=== PATIENT | male | born 1965 | race Two or more races ===

== ENCOUNTER 2025-09-16 10:27 | Inpatient (IN) | payer MEDICAID, SELFPAY ==
[2025-09-16] VITALS (7 sets, daily range): BP systolic 125–146; BP diastolic 70–94; PULSE 86–121; RESP 15–96; TEMP 36.6–37.2; O2SAT 96–98; BMI 25.7; BMI 26.8
--- NOTE | 2025-09-16 10:51 | XR_ITS ---
Examination: Duplex scan of the lower extremity, unilateral right Date and time of exam: September 16, 2025, 1248 hours INDICATIONS: Nonhealing wound right leg with edema noticed beginning 2 weeks ago Technique: Duplex scan of the extremity veins using B-mode/grayscale imaging and Doppler spectral analysis and color flow Attention is directed to internal echogenicity, compression and augmentation involving these veins, color flow assessment, spectral analysis Findings: Major deep venous structures in the extremity demonstrate normal course and caliber. There is no evidence of deep vein thrombosis. Normal color flow and spectral analysis Impression: Negative for DVT..
--- NOTE | 2025-09-16 10:56 | EKG_ITS ---
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
--- NOTE | 2025-09-16 10:56 | XR_ITS ---
EXAMINATION: AP chest single view TECHNIQUE: AP portable semiupright chest single view Date and time: August 16, 2025, 12:15 p.m. INDICATION: Chest pain today. FINDINGS: Normal heart size Ectatic thoracic aorta. No pneumonia or pulmonary edema IMPRESSION: No active disease
--- NOTE | 2025-09-16 10:57 | EDNOTE_ITS ---
ED Wound/Laceration-RME/HPI General Chief Complaint: Extremity Injury, Lower Stated Complaint: INFECTION TO RIGHT LOWER LEG Time Seen by Provider: 09/16/25 10:51 Arrival date/time: 09/16/25 10:27 RME / HPI RME / HPI narrative: DR. ALLAN MAIN ED EVALUATION: 60-year-old male presents to the Emergency Department accompanied by his daughter for evaluation of a right leg wound that has been present for approximately 2 weeks. The patient reports that he was initially seen at [facility], where he was given a shot and prescribed oral antibiotics, which initially improved the swelling. However, the wound later began blistering and oozing. He was subsequently switched the antibiotics and also received injections on Wednesday, , and Wednesday of last week at the clinic. Despite these treatments, he notes no significant improvement and reports intermittent fevers and chills. The antibiotics that were tried were Doxycycline and Bactrim. No history of diabetes reported. Related Data Previous Rx's ?Medication ?Instructions ?Recorded ibuprofen 800 mg tablet 800 mg PO TID PRN pain #30 t abs 08/16/22 Allergies Allergy/AdvReac Type Severity Reaction Status Date / Time No Known Allergies Allergy Verified 09/16/25 10:31 Review of Systems Review of Systems Systems Reviewed: All systems reviewed, normal except as documented Past Medical History Past Medical History CARDIAC: Positive Hypertension Social History SMOKING STATUS: Never smoker SUBSTANCE USE: does not use ALCOHOL: Never ED Exam Narrative Physical exam: GENERAL APPEARANCE: alert and oriented x 4, well-developed, well-nourished, no acute distress VITALS: All vitals were reviewed and the pulse ox is 98% on room air, which is normal according to my interpretation. HEENT: Normocephalic, atraumatic; pupils equal, round, reactive to light; EOMI; mucous membranes pink, moist; oropharynx clear NECK: Supple LUNGS: CTABL; no wheezes, no rales, no rhonchi HEART: Regular rate, regular rhythm; normal S1, S2; no murmurs ABDOMEN: non distended; normal BS; soft, no tenderness, no guarding, no rebound; no masses, no organomegaly, no hernia BACK: no CVA tenderness EXTREMITIES: Right lower leg: multiple areas of denuded skin secondary to deroofed blisters, with surrounding erythema and mild edema. Good pedal pulses bilaterally. 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 09/16/25 10:56 Active EKG (ED ONLY) *Do not use* NOW Care 09/16/25 10:[address] LE RT w con Stat Exams 09/16/25 11:00 Taken EKG (ED Only) Stat Exams 09/16/25 10:56 Draft US venous doppler LE RT Stat Exams 09/16/25 10:51 Taken XR chest 1V portable Stat Exams 09/16/25 10:56 Completed B-Type Natriuretic Peptide Stat Lab 09/16/25 10:55 Completed Blood Culture (Lab) Stat Lab 09/16/25 11:00 Received CBC Stat Lab 09/16/25 10:55 Completed Comprehensive Metabolic Panel Stat Lab 09/16/25 10:55 Completed Lactate (Lactic Acid) Stat Lab 09/16/25 10:55 Completed Lipase Stat Lab 09/16/25 10:55 Completed Magnesium Stat Lab 09/16/25 10:55 Completed Partial Thromboplastin Time Stat Lab 09/16/25 10:55 Completed Procalcitonin Stat Lab 09/16/25 10:55 Completed Prothrombin Time with INR Stat Lab 09/16/25 10:55 Completed Troponin I Stat Lab 09/16/25 10:55 Completed Urinalysis Stat Lab 09/16/25 13:49 Completed Urine Culture Stat Lab 09/16/25 13:50 Received Magnesium Sulfate 2 GM Ivpb [Magnesium Sulfate Ivpb] Med 09/16/25 13:36 Discontinued 2 gm in 50 ml IV X1 Piper/Tazo 3.375 gm Premix [Zosyn] Med 09/16/25 16:16 Discontinued 3.375 gm in 50 ml IV X1 Sodium Chloride 0.9% 1000 ml [Ns] 1,000 ml Med 09/16/25 12:10 Discontinued IV 999 mls/hr Vancomycin/Ns 1 gm Ivpb 200 ml Med 09/16/25 16:16 Active IV X1 Vital Signs Vital signs: Vital Signs Temperature 97.9 F 09/16/25 10:43 Pulse Rate 121 H 09/16/25 10:43 Respiratory Rate 20 09/16/25 10:43 Blood Pressure 146/94 H 09/16/25 10:43 Pulse Oximetry (%) 98 09/16/25 10:43 Oxygen Delivery Method Room Air 09/16/25 10:43 Wound / Laceration MDM Narrative MDM Narrative:: I, Arabella Leon, am scribing for and in the presence of Dr. Allan. Patient data External records reviewed:: [facility] previous records Clinical information provided by:: patient and family (daughter) Social determinants that could affect healthcare access:: none Patient has the following chronic illnesses:: No known PMHx, surgeries, daily medications, or known allergies. How is presenting disease/condition affected by chronic disease/condition?: no chronic disease Evaluation data The following diagnostics were reviewed and interpreted by me:: lab results, radiology exam(s) and EKG tracing(s) (My interpretation: EKG performed at 1104 hours, sinus tachycardia, rate 101, mild artifact, Q wave in leads 2, 3, and AVF, poor R wave progression, no acute ischemic changes) Lab and/or radiology exams considered but not ordered:: none Interpretation Summary: My interpretation: EKG performed at 1104 hours, sinus tachycardia, rate 101, no acute ischemic changes Medications / Prescriptions Medications or Prescriptions considered but not ordered:: none Medication administrations:: Medication Administration History Acetaminophen (Acetaminophen 325 Mg Tablet) 650 mg PO Q6H PRN PRN Reason: Fever >100.3, Pain (1-3) Stop: 10/16/25 16:59 Hydrocodone Bitart/Acetaminophen (Hydrocodone/Apap 5/325 Tablet) 1 tab PO Q6HR PRN PRN Reason: PAIN SCALE 4-10(Mod-Sev Stop: 09/21/25 16:59 Heparin Sodium (Porcine) (Heparin Sod Inj 5000 Unit/Ml Vial) 5,000 unit SC Q12HR MADONNA Stop: 09/30/25 16:59 Vancomycin/Sodium Chloride (Vancomycin/Ns 1 Gm Ivpb) 200 mls @ 120 mls/hr IV X1 ONE Stop: 09/16/25 17:55 Lactated Ringer's (Lactated Ringers) 1,000 mls @ 75 mls/hr IV .[id number] MADONNA Stop: 09/17/25 06:19 Piperacillin Sod/Tazobactam (Sod 4.5 gm/ Sodium Chloride) 100 mls @ 25 mls/hr IV Q8HR MADONNA; Protocol Stop: 09/23/25 21:59 Ondansetron HCl (Ondansetron Inj 2 Mg/Ml Inj 2 Ml) 4 mg IVP Q6H PRN; Protocol PRN Reason: NAUSEA OR VOMITING Stop: 10/16/25 16:59 Pharmacy Consult (Vancomycin Pharmacy To Dose 1 Each Each) 1 each IV QDAY PRN PRN Reason: PROTOCOL Stop: 10/16/25 17:14 Sennosides (Senna Tablet) 1 tab PO QDAY PRN; Protocol PRN Reason: constipation Stop: 10/16/25 16:59 Discontinued Medications Sodium Chloride (Ns) 1,000 mls @ 999 mls/hr IV .Q1H1M ONE Stop: 09/16/25 13:10 Last Infusion: 09/16/25 13:45 Dose: Infused Documented By: Admin: 09/16/25 12:52 Dose: 999 mls/hr Documented By: GM Magnesium Sulfate (Magnesium Sulfate Ivpb) 2 gm in 50 mls @ 25 mls/hr IV X1 ONE Stop: 09/16/25 15:35 Last Infusion: 09/16/25 16:26 Dose: Infused Documented By: Admin: 09/16/25 13:45 Dose: 25 mls/hr Documented By: BD Piperacillin/Tazobactam/Dextrose (Zosyn) 3.375 gm in 50 mls @ 100 mls/hr IV X1 ONE; Protocol Stop: 09/16/25 16:45 Last Admin: 09/16/25 17:08 Dose: 100 mls/hr Documented By: GM see above if any Consultations Consultation(s) initiated? (list below): Yes Consultation #1 (Physician, Specialty, Details): Discussed test HPI, PMHx, lab, radiology results and/or management with resident working with the hospitalist. Will admit for further evaluation and management. Accepts patient for admission. Time: 16:51 Diagnosis Wound Differential Diagnosis: other (Cellulitis with possible abscess formation, bullous impetigo, and venous stasis dermatitis with secondary infection.) Most likely diagnosis given after review of the tests above:: Cellulitis Admission Indicated Admission indicated?: indicated Admission Request Was there a request for admission?: Yes Admission Attestation Admission request attestation: Discussed case with [] from Hospitalist service regarding admission. Discussed patients ED course, exam findings, labs, and radiology results. The Hospitalist [agrees,declines] to accept the patient for admission. Disposition Plan Disposition Plan: Admit Discharge Plan Plan Patient Disposition: Admit Acute Care w/in Hospital Problem List Clinical Impression: Cellulitis
--- NOTE | 2025-09-16 11:00 | XR_ITS ---
Examination examination: CT right lower extremity with intravenous contrast, contrast. 2-D sagittal reconstructions. 2-D coronal reconstructions. 3-D reconstructions. Date and time of exam: September 16, 2025, 1233 hours INDICATIONS: Onset right lower leg redness swelling and pain beginning 2 weeks ago CTDI: vol (mGy): 7.82 DLP: (mGycm): 325 Technique: Multiple 1.25 mm axial sections of the right lower extremity post intravenous administration 60 cc Isovue-370 have been obtained. 2-D sagittal and coronal reconstructions have been obtained. 3-D reconstructions have been obtained. Low dose protocols were performed. One or more of the following dose reduction techniques were used; automated exposure control, adjustment of the mA and/or KV according to patient size, use of iterative reconstruction technique. Findings: Diffuse edema surrounding the medial anterior thigh, more severe edema surrounding the tibia and fibula with skin thickening Negative for osteomyelitis Heavy soft tissue vascular calcification No cortical bone destruction No endosteal scalloping No soft tissue mass in the muscle IMPRESSION: Diffuse edema involving the lower extremity especially the lower leg
[2025-09-16 11:12] LABS: Lactate (Lactic Acid) 2.0 mMol/L (0.4-2.0)
[2025-09-16 11:19] LABS: Basophils # (Auto) 0.1 Thou/mm3 (0.0-0.2); Basophils % (Auto) 1 % (0-2.5); Eosinophils # (Auto) 0.0 Thou/mm3 (0.0-0.5); Eosinophils % (Auto) 0 % (0-10); Hematocrit 40.4 % (41.0-53.0); Hemoglobin 13.1 g/dL (13.5-16.0); Immature Granulocytes Auto 0.59 Thou/mm3 (0.00-0.00); Lymphocytes # (Auto) 1.7 Thou/mm3 (1.0-4.8); Lymphocytes % (Auto) 19 % (10-50); Mean Corpuscular HGB Conc 32.4 g/dl (31.0-37.0); Mean Corpuscular Hemoglobin 30.8 pg (25.0-35.0); Mean Corpuscular Volume 95 fL (80-100); Monocytes # (Auto) 0.4 Thou/mm3 (0.0-0.8); Monocytes % (Auto) 5 % (0-12); Neutrophils # (Auto) 6.3 Thou/mm3 (1.8-7.7); Neutrophils % (Auto) 69 % (37-80); Nucleated Red Blood Cell # 0.00 Thou/mm3 (0.00-0.00); Nucleated Red Blood Cell % 0 /100 WBC (0); Platelet Count 451 Thou/mm3 (140-440); RDW Standard Deviation 50.1 fL (35.1-43.9); Red Blood Count 4.25 Miln/mm3 (4.50-5.90); White Blood Count 9.2 Thou/mm3 (3.8-10.6)
[2025-09-16 11:29] LABS: INR 1.1 (0.9-1.3); Partial Thromboplastin Time 27.8 Seconds (22.0-36.0); Prothrombin Time 11.9 Seconds (9.0-12.2)
[2025-09-16 11:35] LABS: Alanine Aminotransferase 29 U/L (10-49); Albumin, Serum 3.4 gm/dL (3.4-4.8); Albumin/Globulin Ratio 0.7 (1.2-2.2); Alkaline Phosphatase 120 U/L (46-116); Anion Gap 10 (7-16); Aspartate Amino Transferase 31 U/L (0-34); BUN/Creatinine Ratio 22 Ratio (12-20); Bilirubin,Total 0.6 mg/dL (0.3-1.2); Blood Urea Nitrogen 29 mg/dL (9-23); Calcium 8.8 mg/dL (8.3-10.6); Calcium (Corrected) 9.3 mg/dL (8.5-10.1); Carbon Dioxide 20.7 mMol/L (20.0-31.0); Chloride 105 mMol/L (98-107); Creatinine (Component) 1.3 mg/dL (0.6-1.3); Estimated Creatinine Clearance 47.4 mL/min (>60); Globulin 5.0 gm/dL (2.3-3.5); Glucose 138 mg/dL (74-106); Lipase 51 U/L (12-53); Magnesium 1.4 mg/dL (1.6-2.6); Osmolality,Calculated 279 (275-295); Potassium 4.2 mMol/L (3.4-5.1); Sodium 136 mMol/L (136-145); Total Protein 8.4 gm/dL (5.7-8.2); Troponin I < 0.002 ng/mL (0.0-0.045); eGFR > 60 See Note
[2025-09-16 11:41] LABS: Procalcitonin 0.16 ng/ml (0.0-0.49)
[2025-09-16 12:01] LABS: B-Type Natriuretic Peptide < 20 pg/mL (0-100)
[2025-09-16] MEDS: SODIUM CHLORIDE 0.9% 1000 ML 1,000 ML 999 ML IV (12:52)
[2025-09-16] MEDS: Magnesium Sulfate 2 GM Ivpb 2 GM/50 ML BAG IV (13:45)
[2025-09-16 13:58] LABS: Collection Type, Urine Clean Catch
--- NOTE | 2025-09-16 14:07 | PRELIM_ITS ---
CT scan of the right lower extremity with intravenous contrast (axial sections with sagittal and coronal reformats) September 16, 2025 at 1233 hours Clinical History: Right leg edema Comparison: No prior study is available for comparison. Findings: The visualized bones show mild osteopenia and early degenerative changes. No fracture or dislocation is noted. No joint effusion is noted. The visualized muscles are unremarkable with maintained intermuscular fat planes. The entire lower limb vessels show extensive atheromatous calcifications causing mild to moderate luminal compromise. Diffuse subcutaneous edema is present in the right mid, lower thigh and leg region. Impression: 1. Mild osteopenia with early degenerative changes. 2. No evidence of fracture, dislocation, or joint effusion. 3. Extensive atheromatous vascular calcifications with mild to moderate luminal narrowing. 4. Diffuse subcutaneous edema involving the right mid and lower thigh and leg. Report Electronically Signed By: Jose Hoff 09/16/2025 2:06:24 PM [EST]
[2025-09-16 14:17] LABS: Bilirubin,Urine Negative (Negative); Blood,Urine Negative (Negative); Clarity,Urine Clear (Clear/Hazy); Color,Urine Lt-Yellow (Lt Yel-Yel); Glucose, Urine Negative (Negative); Hyaline Casts,Urine < 1 /hpf (0-1); Ketones,Urine Negative (Negative); Leukocyte Esterase,Urine Negative (Negative); Nitrite,Urine Negative (Negative); PH,Urine 6.0 (5.0-7.0); Protein,Urine Negative (Neg - Trace); RBC,Urine 3 /hpf (0-3); Specific Gravity,Urine 1.041 (1.001-1.035); Squamous Epithelial Cell,Urine 1 /hpf (0-5); Urobilinogen,Urine Negative mg/dL (0.0-1.0); WBC,Urine 8 /hpf (0-5)
--- NOTE | 2025-09-16 14:44 | PRELIM_ITS ---
Radiograph of the chest (single view). September 16, 2025 1215 hours Clinical history: chest pain No prior study is available for comparison. Findings: The heart, mediastinum and pulmonary ana are unremarkable. The lungs are clear. There is no pleural effusion. The bony thorax is unremarkable. Impression: No acute cardiopulmonary process. Report Electronically Signed By: Jose Hoff 09/16/2025 2:44:13 PM [EST]
[2025-09-16] MEDS: PIPER/TAZO 3.375 GM PREMIX 3.375 GM/50 ML BAG IV (17:08)
--- NOTE | 2025-09-16 17:12 | PD.RESHP ---
Documentation for date of: 09/16/25 HPI History of Present Illness Chief complaint: Right lower extremity skin peeling wound and swelling History of present illness: Mr. Damian is a 60-year-old male with past medical history of hypertension who presented to [facility] emergency department with a chief complaint of right lower extremity skin peeling wound and swelling. Patient reported that his symptoms started about a week ago when he had a lesion on his right leg for which he saw his primary care physician received 3 doses of IV medication and was prescribed oral antibiotics, reported that since receiving medication the extremity swelling has worsened, reports peeling of skin at multiple sites throughout the leg, redness tenderness and difficulty mobilizing as well. Patient currently denies any pain in the extremity, trauma to the extremity, does report that earlier had significant pain, denies any pain currently. He denies any new medications other than the antibiotics which per chart review are doxycycline and Bactrim. Denies any new dietary supplements, similar lesions in the past, any lesions or similar findings anywhere else. ED Course: ED Vitals: On presentation in ER blood pressure 146/94, heart rate 121, respiratory rate 20, temp 97.9, O2 sat 98 on room air ED Labs: ER labs significant for WBC 9.2, RBC 4.25, hemoglobin 13.1, hematocrit 40.4 MCV MCH MCHC within normal limits, platelet count 451, no left shift noted. Coagulation panel within normal limits, CMP shows elevated BUN 29, creatinine 1.3, GFR greater than 60, glucose 138, corrected calcium normal, magnesium 1.4, AST ALT within normal limits alk phos 120, troponin BNP Pro-Orbin and lipase within normal limits. Elevated total protein 8.4 with globulin 5.0 noted. Urinalysis shows specific gravity 1.041, WBC 8, no bacteria noted. ED Imaging: Venous Doppler study in the emergency department shows no DVT chest x-ray shows no active disease CT lower extremity shows diffuse edema involving lower extremity especially lower leg. No evidence of osteomyelitis. ED Treatment:Patient was given 1 L NS bolus, 2 g of mag and IV Zosyn and vancomycin in the emergency department. Review of Systems Review of Systems Narrative Review of Systems: ROS: -CONSTITUTIONAL: Denies weight loss, fever and chills. -HEENT: Denies changes in vision and hearing. -RESPIRATORY: Denies SOB and cough. -CV: Denies palpitations and Chest Pain. -GI: Denies abdominal pain, nausea, vomiting,constipation and diarrhea. -: Denies dysuria and urinary frequency. -MSK: Denies myalgia and joint pain. Positive for skin peeling swelling right lower extremity. -SKIN: Denies rash and pruritus. -NEUROLOGICAL: Denies headache and syncope. -PSYCHIATRIC: Denies recent changes in mood. Denies anxiety and depression. 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 Conversational and non-toxic appearing. HEENT: Normocephalic, atraumatic, mucous membranes moist. Heart: Sinus tachycardia, no murmurs. Lungs: Clear to auscultation with no wheezing or crackles. Abdomen: Soft, nondistended, nontender, positive bowel sounds. ?No guarding or rebound tenderness. Neurologic: Alert and oriented x3, no gross neurological deficit, and patient able to move all 4 extremities. Extremities: Significant swelling and wounds noted right lower extremity, patchy erythema extending from ankle to below hip, mild warmth and tenderness on palpation, superficial peeling and multiple open erosions, no crepitus fluctuance or bullae noted. Distal pulses intact. Results: Labs 09/17/25 04:33 09/17/25 04:33 Labs: Short CBC 09/16/25 Range/Units 10:55 WBC 9.2 (3.8-10.6) Thou/mm3 Hgb 13.1 L (13.5-16.0) g/dL Hct 40.4 L (41.0-53.0) % Plt Count 451 H (140-440) Thou/mm3 BMP 09/16/25 10:55 Sodium 136 Potassium 4.2 Chloride 105 Carbon Dioxide 20.7 BUN 29 H Creatinine 1.3 Glucose 138 H Calcium 8.8 Cardiac Enzymes 09/16/25 Range/Units 10:55 Troponin I < 0.002 (0.0-0.045) ng/mL Liver Function 09/16/25 Range/Units 10:55 Total Bilirubin 0.6 (0.3-1.2) mg/dL AST 31 (0-34) U/L ALT 29 (10-49) U/L Alkaline Phosphatase 120 H (46-116) U/L Albumin 3.4 (3.4-4.8) gm/dL Urine 09/16/25 Range/Units 13:49 Urine Color Lt-Yellow (Lt Yel-Yel) Urine Clarity Clear (Clear/Hazy) Urine pH 6.0 (5.0-7.0) Ur Specific [place] 1.041 H (1.001-1.035) Urine Protein Negative (Neg - Trace) Urine Glucose (UA) Negative (Negative) Quality Measures Quality Measures none Medications Home Medications and Allergies Home Medications ?Medication ?Instructions ?Recorded ?Confirmed ?Type doxycycline hyclate 100 mg capsule 100 mg PO Q12H cellulitis 09/16/25 09/16/25 History losartan 100 1 tab PO QDAY 09/16/25 09/16/25 History mg-hydrochlorothiazide 25 mg tablet Allergies Allergy/AdvReac Type Severity Reaction Status Date / Time No Known Allergies Allergy Verified 09/16/25 10:31 Visit Medications Acetaminophen (Acetaminophen 325 Mg Tablet) 650 mg PO Q6H PRN PRN Reason: Fever >100.3, Pain (1-3) Stop: 10/16/25 16:59 Hydrocodone Bitart/Acetaminophen (Hydrocodone/Apap 5/325 Tablet) 1 tab PO Q6HR PRN PRN Reason: PAIN SCALE 4-10(Mod-Sev Stop: 09/21/25 16:59 Heparin Sodium (Porcine) (Heparin Sod Inj 5000 Unit/Ml Vial) 5,000 unit SC Q12HR MADONNA Stop: 09/30/25 16:59 Vancomycin/Sodium Chloride (Vancomycin/Ns 1 Gm Ivpb) 200 mls @ 120 mls/hr IV X1 ONE Stop: 09/16/25 17:55 Lactated Ringer's (Lactated Ringers) 1,000 mls @ 75 mls/hr IV .[id number] MADONNA Stop: 09/17/25 06:19 Piperacillin Sod/Tazobactam (Sod 4.5 gm/ Sodium Chloride) 100 mls @ 25 mls/hr IV Q8HR MADONNA; Protocol Stop: 09/23/25 21:59 Ondansetron HCl (Ondansetron Inj 2 Mg/Ml Inj 2 Ml) 4 mg IVP Q6H PRN; Protocol PRN Reason: NAUSEA OR VOMITING Stop: 10/16/25 16:59 Pharmacy Consult (Vancomycin Pharmacy To Dose 1 Each Each) 1 each IV QDAY PRN PRN Reason: PROTOCOL Stop: 10/16/25 17:14 Sennosides (Senna Tablet) 1 tab PO QDAY PRN; Protocol PRN Reason: constipation Stop: 10/16/25 16:59 Discontinued Medications Sodium Chloride (Ns) 1,000 mls @ 999 mls/hr IV .Q1H1M ONE Stop: 09/16/25 13:10 Last Infusion: 09/16/25 13:45 Dose: Infused Magnesium Sulfate (Magnesium Sulfate Ivpb) 2 gm in 50 mls @ 25 mls/hr IV X1 ONE Stop: 09/16/25 15:35 Last Infusion: 09/16/25 16:26 Dose: Infused Piperacillin/Tazobactam/Dextrose (Zosyn) 3.375 gm in 50 mls @ 100 mls/hr IV X1 ONE; Protocol Stop: 09/16/25 16:45 Last Admin: 09/16/25 17:08 Dose: 100 mls/hr Assessment & Plan Plan Assessment and plan: Summary: Mr. Damian is a 60-year-old male with past medical history of hypertension who presented to [facility] emergency department with a chief complaint of right lower extremity skin peeling wound and swelling. Patient admitted for right lower extremity cellulitis, skin peeling and superficial wounds management. #Right lower extremity cellulitis #Skin peeling, superficial open wounds Patient reported his symptoms started about a week ago, received outpatient antibiotics-Bactrim and doxycycline per chart review, received IV medication outpatient in clinic. Low suspicion of necrotizing fasciitis/compartment syndrome, no warning signs of bullae out of proportion pain crepitus or fluctuance noted, CT lower extremity shows diffuse edema, no abscess noted on exam. Denies any trauma to area. Physical exam shows multiple superficial open wounds, prominent on anterior mid calf, patchy erythema and skin peeling with swelling extending all the way up to below hip from ankle. WBC count within normal limits, no signs symptoms of osteomyelitis Venous ultrasound negative for DVT Plan: - IV Zosyn and vancomycin (09/16- - 1 L IV maintenance fluid - referral to wound care - Leg elevation - Pain management with Tylenol and low-dose opiates - Wound assessment in a.m. - Follow blood cultures, ESR, CRP, A1c - Will consider skin biopsy in a.m. #Hypomagnesemia - Correct and replace electrolytes as needed #Normocytic normochromic anemia - Outpatient anemia workup #Hypertension - Monitor blood pressure, pending med reconciliation DVT prophylaxis: Heparin every 12 hour GI prophylaxis: Not indicated Diet: Cardiac Lines: Peripheral IV Code status: Full code Case discussed with Attending Physician Dr. Eliu Saavedra MD Internal Medicine PGY-2 Disclaimer: This note was dictated by speech recognition. Minor errors in financial planning analyst may be present due to voice recognition software. Attending Provider Attestation/Addendum I have examined the patient, reviewed labs and imaging findings, discussed the case with the resident(s), and reviewed entered orders. I agree with the plan of care as outlined in this note, with these additional summaries/recommendations: After examination of the patient and review of the clinical data, I feel that this patient needs admission to the hospital for further treatment and evaluation. Patient is a 60-year-old male with a medical history of primary hypertension who presents to [facility] emergency department on 09/16/2025 with chief complaint of right leg pain, rash, and intermittent fever/chills. Patient seen at bedside. He reports right lower extremity rash started approximately 2 weeks ago and has progressively worsened. He denies any inciting event but does feel the rash started out as a bump. Over the last 2 weeks patient has seen his PCP twice who prescribed 2 courses of antibiotics which included doxycycline and Bactrim. He denies any previous history of similar rash. He denies any oral ulcers but does appear to have some cracking at his lip. 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 At bedside he currently reports his pain is controlled, he is able to freely move his right lower extremity, and pulses are intact. Patient's right lower extremity rash is extensive including different areas and stages of healing with skin peeling throughout with superimposed cellulitis. We will start broad-spectrum IV antibiotics. Consult wound care, recommendations appreciated. Cultures taken and follow-up results when available. Start as needed pain management. We will consider skin biopsy in a.m. if no improvement with antibiotics. Mild hypomagnesia present and replacement given. Repeat level in AM. Resume home lisinopril for primary hypertension. Sinus tachycardia likely related to underlying infection. Repeat hematology and chemistry panel in AM. Patient updated on the plan and agreement. All questions answered to satisfaction. Please see residents note for additional details and management. Dr. Debo MD
[2025-09-16] MEDS: RINGERS LACTATED 1000 ML 1,000 ML 75 ML IV (18:26)
[2025-09-16] MEDS: VANCOMYCIN/NS 1 GM IVPB 200 ML IV (18:27)
[2025-09-16] MEDS: HEPARIN SOD INJ 5000 UNIT/ML VIAL SC (18:27)
[2025-09-16] MEDS: PIPER/TAZO INJ 4.5 GM in SODIUM CHLORIDE 0.9% (POP) 100 ML IV (22:31)
[2025-09-17] VITALS (8 sets, daily range): BP systolic 112–142; BP diastolic 69–84; PULSE 69–107; RESP 16–98; TEMP 36.2–37.6; O2SAT 96–100; BMI 26.9
[2025-09-17 05:34] LABS: Basophils # (Auto) 0.1 Thou/mm3 (0.0-0.2); Basophils % (Auto) 1 % (0-2.5); Eosinophils # (Auto) 0.0 Thou/mm3 (0.0-0.5); Eosinophils % (Auto) 1 % (0-10); Hematocrit 34.2 % (41.0-53.0); Hemoglobin 11.2 g/dL (13.5-16.0); Immature Granulocytes Auto 0.27 Thou/mm3 (0.00-0.00); Lymphocytes # (Auto) 1.5 Thou/mm3 (1.0-4.8); Lymphocytes % (Auto) 20 % (10-50); Mean Corpuscular HGB Conc 32.7 g/dl (31.0-37.0); Mean Corpuscular Hemoglobin 31.2 pg (25.0-35.0); Mean Corpuscular Volume 95 fL (80-100); Monocytes # (Auto) 0.6 Thou/mm3 (0.0-0.8); Monocytes % (Auto) 8 % (0-12); Neutrophils # (Auto) 4.9 Thou/mm3 (1.8-7.7); Neutrophils % (Auto) 67 % (37-80); Nucleated Red Blood Cell # 0.00 Thou/mm3 (0.00-0.00); Nucleated Red Blood Cell % 0 /100 WBC (0); Platelet Count 407 Thou/mm3 (140-440); RDW Standard Deviation 49.2 fL (35.1-43.9); Red Blood Count 3.59 Miln/mm3 (4.50-5.90); White Blood Count 7.3 Thou/mm3 (3.8-10.6)
[2025-09-17] MEDS: PIPER/TAZO INJ 4.5 GM in SODIUM CHLORIDE 0.9% (POP) 100 ML IV ×3 (05:39→21:08)
[2025-09-17 05:53] LABS: Glucose Estimated Average 131 mg/dL (80-131); Hemoglobin A1C 6.2 % Hgb (4.8-6.0)
[2025-09-17 06:05] LABS: Alanine Aminotransferase 24 U/L (10-49); Albumin, Serum 2.7 gm/dL (3.4-4.8); Albumin/Globulin Ratio 0.6 (1.2-2.2); Alkaline Phosphatase 98 U/L (46-116); Anion Gap 10 (7-16); Aspartate Amino Transferase 35 U/L (0-34); BUN/Creatinine Ratio 21 Ratio (12-20); Bilirubin,Total 0.6 mg/dL (0.3-1.2); Blood Urea Nitrogen 19 mg/dL (9-23); C-Reactive Protein 4.5 mg/dL (0.0-0.9); Calcium 8.1 mg/dL (8.3-10.6); Calcium (Corrected) 9.1 mg/dL (8.5-10.1); Carbon Dioxide 20.5 mMol/L (20.0-31.0); Chloride 108 mMol/L (98-107); Creatinine (Component) 0.9 mg/dL (0.6-1.3); Estimated Creatinine Clearance 71.4 mL/min (>60); Globulin 4.2 gm/dL (2.3-3.5); Glucose 88 mg/dL (74-106); Magnesium 1.5 mg/dL (1.6-2.6); Osmolality,Calculated 276 (275-295); Potassium 4.3 mMol/L (3.4-5.1); Sodium 138 mMol/L (136-145); Total Protein 6.9 gm/dL (5.7-8.2); eGFR > 60 See Note
[2025-09-17 07:37] LABS: Sed Rate (ESR) 57 mm/hr (0-20)
--- NOTE | 2025-09-17 08:53 | PC.SS ---
Follow up note: On IV antibiotic and wound care.
[2025-09-17] MEDS: HEPARIN SOD INJ 5000 UNIT/ML VIAL SC ×2 (09:30→20:07)
[2025-09-17] MEDS: MAGNESIUM OXIDE 400 MG TABLET PO (09:30)
[2025-09-17] MEDS: VANCOMYCIN/NS 500 MG IVPB 100 ML 120 MG IV ×2 (09:31→21:07)
--- NOTE | 2025-09-17 10:39 | ESPR_ITS ---
<Statement entered by Vlad Alvarez MD - 09/17/25 15:45> Patient seen and examined at bedside. I discussed and supervised with the internet database specialist physician who took care of this patient. I personally saw and examined the patient. I agree with most of the assessment and plan. Patient reports small improvement in subjective symptoms. Will follow up on wound care consult. Consider skin biopsy if leg does not show continued improvement. Plan of care discussed with attending Dr. Edmondson. Vlad Alvarez MD PGY-2 Documentation for date of: 09/17/25 Subjective Subjective Interval history: Based on the patient's presentation, with ulceration involving most of the medial leg and areas of violaceous discoloration around ulcer margins, and an initial eruption originating in the right inguinal region with bullae, no history of trauma, penetrating injury, or animal exposure, the primary etiology remains unclear. The patient does however, demonstrate evidence of superimposed cellulitis. Planned for skin biopsy, pain management, Continue IV zosyn 4.5 g q8hr and IV vancomycin. Blood Cx pending. Will follow up with Wound Care. Restarted patient home medication: Losartan-Hydrochlorothazide 100-25mg po qd No Overnight events. Labs reviewed and patient examined at the bedside. Denies chest pain, palpation, SOB, abdominal pain, N/V, fevers or chills. Exam Vital Signs Temp Pulse Resp BP Pulse Ox O2 Del Method 97.1 F 72 17 142/84 H 100 Room Air 09/17/25 08:00 09/17/25 08:00 09/17/25 08:00 09/17/25 08:00 09/17/25 08:00 09/17/25 08:00 Narrative Exam General: No acute distress, well nourished, AAO x3 Eye: PERRL, EOMI, normal conjunctiva, no scleral icterus HENT: Normocephalic, atraumatic, hearing intact to conversation at normal volume, moist oral mucosa Neck: Supple, non-tender, no JVD, no lymphadenopathy Lungs: Non-labored respirations, symmetric chest rise, Clear to auscultate bilaterally, No wheezing, rhonchi, crackles Heart: Peripheral pulses intact bilaterally, Regular Rate and Rhythm. Abdomen: Soft, non-tender, non-distended, no palpable masses Musculoskeletal: Normal range of motion and strength, SEE SKIN Skin: Significant swelling and wounds present along the medial aspect of the right leg. Patchy erythema noted extending from the ankle to just below hip. Mild tenderness to palpation. Superficial skin peeling and multiple superficial erosions observed. No Crepitus, fluctuance or bullae seen. Psychiatric: Cooperative, appropriate mood and affect, Awake and alert, not agitated Neuro: Cranial nerves II-XII grossly intact. Strength 5/5 throughout. Sensations intact to light touch. Objective Labs 09/17/25 04:33 09/17/25 04:33 Labs: Laboratory Results - last 24 hr 09/16/25 09/16/25 09/17/25 10:55 13:49 04:33 WBC 9.2 7.3 RBC 4.25 L 3.59 L Hgb 13.1 L 11.2 L Hct 40.4 L 34.2 L MCV 95 95 MCH 30.8 31.2 MCHC 32.4 32.7 RDW Std Deviation 50.1 H 49.2 H Plt Count 451 H 407 D Neut % (Auto) 69 67 Lymph % (Auto) 19 20 Wilkinson % (Auto) 5 8 Eos % (Auto) 0 1 Baso % (Auto) 1 1 Neut # (Auto) 6.3 4.9 Lymph # (Auto) 1.7 1.5 Wilkinson # (Auto) 0.4 0.6 Eos # (Auto) 0.0 0.0 Baso # (Auto) 0.1 0.1 Immature Gran # (Auto) 0.59 H 0.27 H Absolute Nucleated RBC 0.00 0.00 Immature Gran % 6 H 4 H Nucleated RBC % 0 0 ESR 57 H PT 11.9 INR 1.1 APTT 27.8 Sodium 136 138 Potassium 4.2 4.3 Chloride 105 108 H Carbon Dioxide 20.7 20.5 Anion Gap 10 10 BUN 29 H 19 Creatinine 1.3 0.9 Estim Creat Clear Calc 47.4 L 71.4 eGFR > 60 > 60 BUN/Creatinine Ratio 22 H 21 H Glucose [address] Glu mg/dL 131 Hemoglobin A1c 6.2 H Calculated Osmolality 279 276 Lactic Acid 2.0 Calcium 8.8 8.1 L Corrected Calcium 9.3 9.1 Magnesium 1.4 L 1.5 L Total Bilirubin 0.6 0.6 AST 31 35 H ALT 29 24 Alkaline Phosphatase 120 H 98 D Troponin I < 0.002 C-Reactive Prot, Quant 4.5 H B-Natriuretic Peptide < 20 Total Protein 8.4 H 6.9 Albumin 3.4 2.7 L D Globulin 5.0 H 4.2 H Albumin/Globulin Ratio 0.7 L 0.6 L Lipase 51 Procalcitonin 0.16 Ur Collection Type Clean Catch Urine Color Lt-Yellow Urine Clarity Clear Urine pH 6.0 Ur Specific [place] 1.041 H Urine Protein Negative Urine Glucose (UA) Negative Urine Ketones Negative Urine Blood Negative Urine Nitrite Negative Urine Bilirubin Negative Urine Urobilinogen (Auto) Negative Ur Leukocyte Esterase Negative Urine RBC 3 Urine WBC 8 H Ur Squamous Epith Cells 1 Urine Bacteria None Hyaline Casts < 1 Quality Measures Quality Measures none Assessment & Plan Assessment Current Active Medications: Generic Name Dose Route Start Last Admin Trade Name Freq PRN Reason Stop Dose Admin Acetaminophen 650 mg 09/16/25 17:00 Acetaminophen 325 Mg Tablet PO 10/16/25 16:59 Q6H PRN Fever >100.3, Pain (1-3) Hydrocodone Bitart/Acetaminophen 1 tab 09/16/25 17:00 Hydrocodone/Apap 5/325 Tablet PO 09/21/25 16:59 Q6HR PRN PAIN SCALE 4-10(Mod-Sev Heparin Sodium (Porcine) 5,000 unit 09/16/25 17:00 09/17/25 09:30 Heparin Sod Inj 5000 Unit/Ml Vial SC 09/30/25 16:59 5,000 unit Q12HR MADONNA Administration Piperacillin Sod/Tazobactam 100 mls @ 25 mls/hr 09/16/25 22:00 09/17/25 05:39 Sod 4.5 gm/ Sodium Chloride IV 09/23/25 21:59 25 mls/hr Q8HR MADONNA Administration Protocol Vancomycin/Sodium Chloride 100 mls @ 120 mls/hr 09/17/25 10:00 09/17/25 09:31 Vancomycin/Ns 500 Mg Ivpb IV 09/24/25 09:59 120 mls/hr Q12H MADONNA Administration Protocol Ondansetron HCl 4 mg 09/16/25 17:00 Ondansetron Inj 2 Mg/Ml Inj 2 Ml IVP 10/16/25 16:59 Q6H PRN NAUSEA OR VOMITING Protocol Pharmacy Consult 1 each 09/16/25 17:15 Vancomycin Pharmacy To Dose 1 Each Each IV 10/16/25 17:14 QDAY PRN PROTOCOL Sennosides 1 tab 09/16/25 17:00 Senna Tablet PO 10/16/25 16:59 QDAY PRN constipation Protocol Plan Mr. Damian is a 60-year-old male with past medical history of hypertension who presented to [facility] emergency department with a chief complaint of right lower extremity skin peeling wound and swelling. Patient admitted for right lower extremity cellulitis, skin peeling and superficial wounds management. #Right lower extremity cellulitis #Skin peeling, superficial open wounds -Patient reported his symptoms started about a week ago, received outpatient antibiotics-Bactrim and doxycycline per chart review, received IV medication outpatient in clinic. Low suspicion of necrotizing fasciitis/compartment syndrome, no warning signs of bullae out of proportion pain crepitus or fluctuance noted, CT lower extremity shows diffuse edema, no abscess noted on exam. Denies any trauma to area. -Physical exam shows multiple superficial open wounds, prominent on anterior mid calf, patchy erythema and skin peeling with swelling extending all the way up to below hip from ankle. -WBC count within normal limits, no signs symptoms of osteomyelitis -Venous ultrasound negative for DVT -Blood Cx: Negative for 24 hrs Plan: -IV zosyn 4.5 g q8hr and IV vancomycin. (09/16- -Referral to wound care -Leg elevation -Pain management with Tylenol and low-dose opiates -Wound assessment in a.m. -Follow blood cultures, ESR, CRP, A1c -Will consider skin biopsy in a.m. #Hypomagnesemia - Correct and replace electrolytes as needed #Normocytic normochromic anemia - Outpatient anemia workup #Hypertension -Monitor blood pressure -Restarted patient home medication: Losartan-Hydrochlorothazide 100-25mg po qd DVT prophylaxis: Heparin every 12 hour GI prophylaxis: Not indicated Diet: Cardiac Lines: Peripheral IV Code status: Full code Assessment and plan discussed with my attending physician Dr. Edmondson and Dr. Alvarez (PGY-2) Dr. Bob (PGY-1) - Internal medicine resident Attending Provider Attestation/Addendum I have examined the patient, reviewed labs and imaging findings, discussed the case with the resident(s), and reviewed entered orders. I agree with the plan of care as outlined in this note, with these additional summaries/recommendations: Patient is a 60-year-old male with a medical history of primary hypertension who presents to [facility] emergency department on 09/16/2025 with chief complaint of right leg pain, rash, and intermittent fever/chills. Patient seen at bedside. No acute overnight events. He currently reports his pain is controlled. Patient was seen by wound care who recommends daily showering, generalized moisturizer, and medicated cream to RLE with noelle wrap for light compression. He reports right lower extremity rash started approximately 2 weeks ago and has progressively worsened. He denies any inciting event but does feel the rash started out as a bump. Over the last 2 weeks patient has seen his PCP twice who prescribed 2 courses of antibiotics which included doxycycline and Bactrim. He denies any previous history of similar rash. He denies any oral ulcers. 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 At bedside he currently reports his pain is controlled, he is able to freely move his right lower extremity, and pulses are intact with cap refill <3 seconds. Patient's right lower extremity rash is extensive including different areas and stages of healing with skin peeling throughout with superimposed cellulitis. Continue broad-spectrum IV antibiotics. Cultures taken and follow-up results when available. Order Skin biopsy. Continue home lisinopril for primary hypertension. Sinus tachycardia likely related to underlying infection. Repeat hematology and chemistry panel in AM. Patient updated on the plan and agreement. All questions answered to satisfaction. Please see residents note for additional details and management. Dr. Debo MD
[2025-09-17] MEDS: SILVER SULFADIAZINE CR 1% 400G 400 GM JAR TOP ×2 (14:35→20:07)
[2025-09-17] MEDS: MIN OIL/PET,WHITE (Eucerin) CR 16 OZ BTL TOP (14:36)
[2025-09-17] MEDS: HYDROcodone/APAP 5/325 TABLET 1 TAB PO (15:03)
--- NOTE | 2025-09-17 16:21 | PC.SS ---
SS met with patient regarding his d/c plan. Pt is alert/oriented. Pt was admitted for RLE Cellulitis. Pt confirmed demographic and contact information is correct on facesheet. Pt resides with dtr. Pt ambulates independently without assistance or DME. Pt is ok with all ADLs. Patient?s pharmacy of choice is [facility] on [address]. Pt named his dtr, Christelle Collins medical decision maker if he is unable. Patient?s choice is to return home upon d/c. Pt does not have an advance directive, SS offered, and pt was receptive. Pt states he was recently informed he is border line diabetic. Pt states he is not on dialysis. Pt followed up with PCP on Sep 05, 2025 at [facility] (for a 1 time appointment). D/C plan: Return home Next of Kin: Christelle Collins, dtr, phone# [phone] PCP: Brian Santana from [facility] Address: Correct on facesheet
[2025-09-18] VITALS (9 sets, daily range): BP systolic 112–131; BP diastolic 73–80; PULSE 66–108; RESP 16–98; TEMP 36.4–37.3; O2SAT 95–100
[2025-09-18] MEDS: PIPER/TAZO INJ 4.5 GM in SODIUM CHLORIDE 0.9% (POP) 100 ML IV (05:09)
--- NOTE | 2025-09-18 05:27 | PC.NURSE ---
Patient refusing wound care at this time, wishes to do it after taking a shower. Education provided to the daughter at the bedside in regards to instructions with wound care. Patient verbalizes understanding.
[2025-09-18 05:41] LABS: Basophils # (Auto) 0.1 Thou/mm3 (0.0-0.2); Basophils % (Auto) 1 % (0-2.5); Eosinophils # (Auto) 0.1 Thou/mm3 (0.0-0.5); Eosinophils % (Auto) 1 % (0-10); Hematocrit 31.5 % (41.0-53.0); Hemoglobin 10.6 g/dL (13.5-16.0); Immature Granulocytes Auto 0.13 Thou/mm3 (0.00-0.00); Lymphocytes # (Auto) 1.9 Thou/mm3 (1.0-4.8); Lymphocytes % (Auto) 26 % (10-50); Mean Corpuscular HGB Conc 33.7 g/dl (31.0-37.0); Mean Corpuscular Hemoglobin 31.7 pg (25.0-35.0); Mean Corpuscular Volume 94 fL (80-100); Monocytes # (Auto) 0.7 Thou/mm3 (0.0-0.8); Monocytes % (Auto) 10 % (0-12); Neutrophils # (Auto) 4.5 Thou/mm3 (1.8-7.7); Neutrophils % (Auto) 61 % (37-80); Nucleated Red Blood Cell # 0.00 Thou/mm3 (0.00-0.00); Nucleated Red Blood Cell % 0 /100 WBC (0); Platelet Count 383 Thou/mm3 (140-440); RDW Standard Deviation 46.9 fL (35.1-43.9); Red Blood Count 3.34 Miln/mm3 (4.50-5.90); White Blood Count 7.4 Thou/mm3 (3.8-10.6)
[2025-09-18 06:08] LABS: Alanine Aminotransferase 22 U/L (10-49); Albumin, Serum 2.7 gm/dL (3.4-4.8); Albumin/Globulin Ratio 0.7 (1.2-2.2); Alkaline Phosphatase 87 U/L (46-116); Anion Gap 9 (7-16); Aspartate Amino Transferase 30 U/L (0-34); BUN/Creatinine Ratio 21 Ratio (12-20); Bilirubin,Total 0.6 mg/dL (0.3-1.2); Blood Urea Nitrogen 17 mg/dL (9-23); Calcium 8.2 mg/dL (8.3-10.6); Calcium (Corrected) 9.2 mg/dL (8.5-10.1); Carbon Dioxide 21.4 mMol/L (20.0-31.0); Chloride 106 mMol/L (98-107); Creatinine (Component) 0.8 mg/dL (0.6-1.3); Estimated Creatinine Clearance 78.5 mL/min (>60); Globulin 4.1 gm/dL (2.3-3.5); Glucose 101 mg/dL (74-106); Magnesium 1.3 mg/dL (1.6-2.6); Osmolality,Calculated 273 (275-295); Potassium 3.9 mMol/L (3.4-5.1); Sodium 136 mMol/L (136-145); Total Protein 6.8 gm/dL (5.7-8.2); eGFR > 60 See Note
[2025-09-18 09:51] LABS: Vancomycin,Trough 7.9 mcg/mL (5.0-10.0)
[2025-09-18] MEDS: LOSARTAN POTASSIUM 25 MG TABLET 100 MG PO (10:34)
[2025-09-18] MEDS: HEPARIN SOD INJ 5000 UNIT/ML VIAL SC ×2 (10:34→21:43)
[2025-09-18] MEDS: ceFAZolin/D5W 2 GM IV 2 GM/100 ML BAG IV ×3 (10:35→21:43)
[2025-09-18] MEDS: SILVER SULFADIAZINE CR 1% 400G 400 GM JAR TOP ×2 (10:35→21:43)
[2025-09-18] MEDS: MIN OIL/PET,WHITE (Eucerin) CR 16 OZ BTL TOP (10:36)
[2025-09-18] MEDS: Magnesium Sulfate 4 GM Ivpb 4 GM/50 ML BAG IV (10:50)
[2025-09-18] MEDS: MAGNESIUM OXIDE 400 MG TABLET PO (10:50)
[2025-09-18 12:44] LABS: Cardiac Risk Estimate 4.5 RATIO (4.0-6.7); Cholesterol 90 mg/dL (132-200); HDL Cholesterol 20 mg/dL (40-60); LDL Cholesterol,Calculated 54 mg/dL (0-130); Triglycerides 81 mg/dL (30-150)
--- NOTE | 2025-09-18 15:42 | ESPR_ITS ---
<Statement entered by Emperatriz Saavedra MD - 09/19/25 06:09> Patient was seen and examined at bedside. I agree on the assessment and plan on this note as documented by resident Eva Bob DO PGY1. 60-year-old male with past medical history of hypertension admitted for right lower extremity cellulitis skin peeling and superficial open wounds, presentation not of classic cellulitis possible underlying dermatological issue, suspicion of some limited form of Yogesh Eliseo syndrome possibly secondary to Bactrim which was prescribed outpatient for cellulitis management by outpatient clinic provider. However Punch biopsy deferred for now considering patient's cellulitis is crusting and healing well. If symptoms recur, should follow-up closely with the hat trimmer, antibiotic therapy was de-escalated to cefazolin, will continue, pending blood cultures, anticipate discharge in the next 24 hours with outpatient wound care follow-up if patient continues to improve. Case discussed with attending Dr. Otis Roldan MD PGY-2 Documentation for date of: 09/18/25 Subjective Subjective Interval history: The patient reports that his initial presentation involved a lump or fluid- filled lesion that subsequently progressed to bullae over the right knee. The ulceration are now cursted with decreased violaceous discoloration, suggesting interval improvement. He denies similar prior episodes. Given the temporal association with bactrim therapy for the initial lesion, a medical -associated reaction such as early Asher-Eliseo syndrome cannot be fully excluded, although not currently definitive. No new lesions have developed, and exisiting lesions appear to be healing. Plan to continue IV antibiotics and monitor closely. Patient also noted firmness on his right leg, no more throbbing sharp pain. No skin biopsy is needed at this moment. No Overnight events. Labs reviewed and patient examined at the bedside. Denies chest pain, palpation, SOB, abdominal pain, N/V, fevers or chills. Exam Vital Signs Temp Pulse Resp BP Pulse Ox O2 Del Method 98.1 F 79 16 130/75 99 Room Air 09/18/25 12:00 09/18/25 12:00 09/18/25 12:00 09/18/25 12:00 09/18/25 12:00 09/18/25 04:00 Narrative Exam General: No acute distress, well nourished, AAO x3 Eye: PERRL, EOMI, normal conjunctiva, no scleral icterus HENT: Normocephalic, atraumatic, hearing intact to conversation at normal volume, moist oral mucosa Neck: Supple, non-tender, no JVD, no lymphadenopathy Lungs: Non-labored respirations, symmetric chest rise, Clear to auscultate bilaterally, No wheezing, rhonchi, crackles Heart: Peripheral pulses intact bilaterally, Regular Rate and Rhythm. Abdomen: Soft, non-tender, non-distended, no palpable masses Musculoskeletal: Normal range of motion and strength, SEE SKIN Skin: Healing and crusted wounds present along the medial aspect of the right leg. Patchy erythema noted extending from the ankle to just below hip. Mild tenderness to palpation. Superficial skin peeling and multiple superficial erosions observed. No Crepitus, fluctuance or bullae seen. Psychiatric: Cooperative, appropriate mood and affect, Awake and alert, not agitated Neuro: Cranial nerves II-XII grossly intact. Strength 5/5 throughout. Sensations intact to light touch. Objective Labs 09/19/25 04:48 09/19/25 04:48 Labs: Laboratory Results - last 24 hr 09/18/25 09/18/25 05:27 09:10 WBC 7.4 RBC 3.34 L Hgb 10.6 L Hct 31.5 L MCV 94 MCH 31.7 MCHC 33.7 RDW Std Deviation 46.9 H Plt Count 383 Neut % (Auto) 61 Lymph % (Auto) 26 [place] % (Auto) 10 Eos % (Auto) 1 Baso % (Auto) 1 Neut # (Auto) 4.5 Lymph # (Auto) 1.9 [place] # (Auto) 0.7 Eos # (Auto) 0.1 Baso # (Auto) 0.1 Immature Gran # (Auto) 0.13 H Absolute Nucleated RBC 0.00 Immature Gran % 2 H Nucleated RBC % 0 Sodium 136 Potassium 3.9 Chloride 106 Carbon Dioxide 21.4 Anion Gap 9 BUN 17 Creatinine 0.8 Estim Creat Clear Calc 78.5 eGFR > 60 BUN/Creatinine Ratio 21 H Glucose 101 Calculated Osmolality 273 L Calcium 8.2 L Corrected Calcium 9.2 Magnesium 1.3 L Total Bilirubin 0.6 AST 30 ALT 22 Alkaline Phosphatase 87 Total Protein 6.8 Albumin 2.7 L Globulin 4.1 H Albumin/Globulin Ratio 0.7 L Triglycerides 81 Cholesterol 90 L LDL Cholesterol, Calc 54 HDL Cholesterol 20 L Cholesterol/HDL Ratio 4.5 Vancomycin Trough 7.9 Quality Measures Quality Measures none Assessment & Plan Assessment Current Active Medications: Generic Name Dose Route Start Last Admin Trade Name Freq PRN Reason Stop Dose Admin Acetaminophen 650 mg 09/16/25 17:00 Acetaminophen 325 Mg Tablet PO 10/16/25 16:59 Q6H PRN Fever >100.3, Pain (1-3) Hydrocodone Bitart/Acetaminophen 1 tab 09/16/25 17:00 09/17/25 15:03 Hydrocodone/Apap 5/325 Tablet PO 09/21/25 16:59 1 tab Q6HR PRN Administration PAIN SCALE 4-10(Mod-Sev Heparin Sodium (Porcine) 5,000 unit 09/16/25 17:00 09/18/25 10:34 Heparin Sod Inj 5000 Unit/Ml Vial SC 09/30/25 16:59 5,000 unit Q12HR MADONNA Administration Hydrochlorothiazide 25 mg 09/18/25 09:00 09/18/25 10:34 Hydrochlorothiazide 12.5 Mg Capsule PO 10/18/25 08:59 25 mg QDAY MADONNA Administration Cefazolin Sodium 2 gm in 100 mls @ 100 mls/hr 09/18/25 10:08 09/18/25 15:16 Ancef 2gm Ivpb IV 09/25/25 10:07 100 mls/hr Q8HR MADONNA Administration Losartan Potassium 100 mg 09/18/25 09:00 09/18/25 10:34 Losartan Potassium 25 Mg Tablet PO 10/18/25 08:59 100 mg QDAY MADONNA Administration Multi-Ingredient Ointment 0 oz 09/17/25 12:45 09/18/25 10:36 Min Oil/Pet,White (Eucerin) Cr 16 Oz Btl TOP 10/17/25 12:44 16 appl DAILY MADONNA Administration Ondansetron HCl 4 mg 09/16/25 17:00 Ondansetron Inj 2 Mg/Ml Inj 2 Ml IVP 10/16/25 16:59 Q6H PRN NAUSEA OR VOMITING Protocol Sennosides 1 tab 09/16/25 17:00 Senna Tablet PO 10/16/25 16:59 QDAY PRN constipation Protocol Silver Sulfadiazine 0 gm 09/17/25 12:45 09/18/25 10:35 Silver Sulfadiazine Cr 1% 400g 400 Gm Jar TOP 09/24/25 12:44 400 appl BID MADONNA Administration Plan Mr. Damian is a 60-year-old male with past medical history of hypertension who presented to [facility] emergency department with a chief complaint of right lower extremity skin peeling wound and swelling. Patient admitted for right lower extremity cellulitis, skin peeling and superficial wounds management. #Right lower extremity cellulitis #Skin peeling, superficial open wounds #2/2 Asher-Eliseo syndrome? -Patient reported his symptoms started about a week ago, received outpatient antibiotics-Bactrim and doxycycline per chart review, received IV medication outpatient in clinic. Low suspicion of necrotizing fasciitis/compartment syndrome, no warning signs of bullae out of proportion pain crepitus or fluctuance noted, CT lower extremity shows diffuse edema, no abscess noted on exam. Denies any trauma to area. -Physical exam shows multiple superficial open wounds, prominent on anterior mid calf, patchy erythema and skin peeling with swelling extending all the way up to below hip from ankle. -WBC count within normal limits, no signs symptoms of osteomyelitis -Venous ultrasound negative for DVT -Blood Cx: Negative for 24 hrs -09/18: Crusted and healing lesions. Given the temporal association with bactrim therapy for the initial lesion, a medical -associated reaction such as early Asher-Eliseo syndrome cannot be fully excluded, although not currently definitive. No skin biopsy is needed at this point. Plan: -IV zosyn 4.5 g q8hr and IV vancomycin. (09/16-09/18), IV Cefazolin 09/19- -Referral to wound care -Leg elevation -Pain management with Tylenol and low-dose opiates -Wound assessment in a.m. #Hypomagnesemia - Correct and replace electrolytes as needed #Normocytic normochromic anemia - Outpatient anemia workup #Hypertension -Monitor blood pressure -Restarted patient home medication: Losartan-Hydrochlorothazide 100-25mg po qd DVT prophylaxis: Heparin every 12 hour GI prophylaxis: Not indicated Diet: Cardiac Lines: Peripheral IV Code status: Full code Assessment and plan discussed with my attending physician Dr. Galan and Dr. Saavedra (PGY-2) Dr. Bob (PGY-1) - Internal medicine resident Attending Provider Attestation/Addendum I have discussed and was present for the essential components of the history, physical examination, diagnosis, and treatment plan with the resident. I agree with the patient's care as documented by the resident and amended herein by me. Kirk Galan DO. Although this document has been carefully reviewed, there may still be some phonetic and other typographical errors. These errors are purely grammatical due to imperfections in the software program and should not be construed in any way to compromise the substance of the patient's medical care during this visit.
--- NOTE | 2025-09-18 16:47 | PC.PT ---
Patient is safe to ambulate to the bathroom with a FWW and 1 staff assist. RN made aware.
[2025-09-19] VITALS (7 sets, daily range): BP systolic 100–112; BP diastolic 65–73; PULSE 68–96; RESP 18–97; TEMP 36.2–36.8; O2SAT 95–97
[2025-09-19 05:49] LABS: Basophils # (Auto) 0.1 Thou/mm3 (0.0-0.2); Basophils % (Auto) 2 % (0-2.5); Eosinophils # (Auto) 0.1 Thou/mm3 (0.0-0.5); Eosinophils % (Auto) 1 % (0-10); Hematocrit 31.8 % (41.0-53.0); Hemoglobin 10.4 g/dL (13.5-16.0); Immature Granulocytes Auto 0.11 Thou/mm3 (0.00-0.00); Lymphocytes # (Auto) 1.7 Thou/mm3 (1.0-4.8); Lymphocytes % (Auto) 26 % (10-50); Mean Corpuscular HGB Conc 32.7 g/dl (31.0-37.0); Mean Corpuscular Hemoglobin 30.9 pg (25.0-35.0); Mean Corpuscular Volume 94 fL (80-100); Monocytes # (Auto) 0.7 Thou/mm3 (0.0-0.8); Monocytes % (Auto) 10 % (0-12); Neutrophils # (Auto) 3.9 Thou/mm3 (1.8-7.7); Neutrophils % (Auto) 59 % (37-80); Nucleated Red Blood Cell # 0.00 Thou/mm3 (0.00-0.00); Nucleated Red Blood Cell % 0 /100 WBC (0); Platelet Count 490 Thou/mm3 (140-440); RDW Standard Deviation 46.1 fL (35.1-43.9); Red Blood Count 3.37 Miln/mm3 (4.50-5.90); White Blood Count 6.7 Thou/mm3 (3.8-10.6)
[2025-09-19] MEDS: ceFAZolin/D5W 2 GM IV 2 GM/100 ML BAG IV (06:05)
[2025-09-19 06:15] LABS: Alanine Aminotransferase 21 U/L (10-49); Albumin, Serum 2.8 gm/dL (3.4-4.8); Albumin/Globulin Ratio 0.6 (1.2-2.2); Alkaline Phosphatase 92 U/L (46-116); Anion Gap 9 (7-16); Aspartate Amino Transferase 33 U/L (0-34); BUN/Creatinine Ratio 21 Ratio (12-20); Bilirubin,Total 0.5 mg/dL (0.3-1.2); Blood Urea Nitrogen 15 mg/dL (9-23); Calcium 8.4 mg/dL (8.3-10.6); Calcium (Corrected) 9.4 mg/dL (8.5-10.1); Carbon Dioxide 24.5 mMol/L (20.0-31.0); Chloride 101 mMol/L (98-107); Creatinine (Component) 0.7 mg/dL (0.6-1.3); Estimated Creatinine Clearance 89.7 mL/min (>60); Globulin 4.6 gm/dL (2.3-3.5); Glucose 94 mg/dL (74-106); Magnesium 1.6 mg/dL (1.6-2.6); Osmolality,Calculated 269 (275-295); Phosphorous 4.2 mg/dL (2.4-5.1); Potassium 3.7 mMol/L (3.4-5.1); Sodium 134 mMol/L (136-145); Total Protein 7.4 gm/dL (5.7-8.2); eGFR > 60 See Note
[2025-09-19] MEDS: LOSARTAN POTASSIUM 25 MG TABLET 100 MG PO (08:52)
[2025-09-19] MEDS: HEPARIN SOD INJ 5000 UNIT/ML VIAL SC (08:53)
[2025-09-19] MEDS: MAGNESIUM OXIDE 400 MG TABLET PO (08:54)
[2025-09-19] MEDS: Magnesium Sulfate 2 GM Ivpb 2 GM/50 ML BAG IV (09:20)
[2025-09-19] MEDS: MIN OIL/PET,WHITE (Eucerin) CR 16 OZ BTL TOP (13:18)
[2025-09-19] MEDS: HYDROcodone/APAP 5/325 TABLET 1 TAB PO (13:18)
--- NOTE | 2025-09-19 14:12 | ESDS_ITS ---
<Statement entered by Vlad Alvarez MD - 09/19/25 17:54> Patient seen and examined at bedside. I discussed and supervised with the improvement intern physician who took care of this patient. I personally saw and examined the patient. I agree with most of the assessment and plan. Plan of care discussed with attending Dr. Galan. Vlad Alvarez MD PGY-2 Planned Discharge Date 09/19/25 DS: Providers Provider Date of admission: 09/16/25 16:51 Primary care physician: Jeanmarie Stinson MD Admitting Provider: Eliu Edmondson MD Attending Provider on Admission: Otis Galan DO Consults: 09/16/25 17:02 Referral Wound Care Routine Comment: 09/17/25 01:29 Referral Registered Dietitian Routine Comment: 09/17/25 12:31 Referral OP Wound Healing Dept Routine Comment: RLE cellulitis with blistering 09/17/25 15:29 Referral Physical Therapy Routine Comment: Physician Instructions: Attending Provider on DC: Janusz Bob DO Discharging Provider: Janusz Bob DO DS: Diagnosis Problem List Completed Was Problem List Reviewed/Reconciled?: Yes Hospital Course Hospital Course Hospital course: Summary: Mr. Damian is a 60-year-old male with past medical history of hypertension who presented to [facility] emergency department with a chief complaint of right lower extremity skin peeling wound and swelling. Patient admitted for right lower extremity cellulitis, skin peeling and superficial wounds management. Although the patient have superimposed cellultis, the primary underlying etiology remains unclear. 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 Bactrim). Patient was given IV antibiotics with woundcare. Patient's wound showed signs of healing with crusting and decrease in pain. Patient's lab was stable and discharged with oral antibiotics. ED course: ED Vitals: On presentation in ER blood pressure 146/94, heart rate 121, respiratory rate 20, temp 97.9, O2 sat 98 on room air ED Labs: ER labs significant for WBC 9.2, RBC 4.25, hemoglobin 13.1, hematocrit 40.4 MCV MCH MCHC within normal limits, platelet count 451, no left shift noted. Coagulation panel within normal limits, CMP shows elevated BUN 29, creatinine 1.3, GFR greater than 60, glucose 138, corrected calcium normal, magnesium 1.4, AST ALT within normal limits alk phos 120, troponin BNP Pro-Robin and lipase within normal limits. Elevated total protein 8.4 with globulin 5.0 noted. Urinalysis shows specific gravity 1.041, WBC 8, no bacteria noted. ED Imaging: Venous Doppler study in the emergency department shows no DVT chest x-ray shows no active disease CT lower extremity shows diffuse edema involving lower extremity especially lower leg. No evidence of osteomyelitis. ED Treatment:Patient was given 1 L NS bolus, 2 g of mag and IV Zosyn and vancomycin in the emergency department. Hospital Course: Upon admission to the hospital, patient started to received IV zosyn 4.5 g q8hr and IV vancomycin, with wound care referral. Pain management given with Tylenol and low-dose opiates. According to the patient, his initial presentation involved a lump or fluid-filled lesion that subsequently progressed to bullae over the right knee. He had no history of trauma, penetrating injury, or animal exposure. The ulceration became cursted with decreased violaceous discoloration, suggesting interval improvements. He denied similar prior episodes. Given the temporal association with bactrim therapy for the initial lesion, a medical- associated reaction such as early Asher-Eliseo syndrome cannot be fully excluded, although not currently definitive. He did have superimposed ce llulitis. No new lesions developed, and exisiting lesions appeared to be healing. Blood culture has been negative for 48hrs. On 09/19, patient noted firmness on his right leg with no more significant pain. Skin biopsy was planned but cancelled as his wounds were at healing stage. Patient has been discharged with Keflex #Right lower extremity cellulitis #Skin peeling, superficial open wounds #2/2 Asher-Eliseo syndrome? #Hypomagnesemia #Normocytic normochromic anemia #Hypertension Instructions: Complete el tratamiento antibi?iggy con Keflex fabiola 5 d?as m?s. Si las lesiones reaparecen, solicite martha derivaci?n a dermatolog?a y acuda a pérez consulta externa. Si es prediab?iggy, acuda a pérez m?dico de cabecera en martha semana para continuar con el tratamiento. Contin?e con pérez medicaci?n para la presi?n arterial en la consulta externa. Aseg?rese de acudir a la consulta externa de cuidado de heridas y siga las instrucciones que se indican a continuaci?n. Regrese al servicio de urgencias si harvinder s?ntomas empeoran. 1) Acuda a la [facility], ubicada en [address] [place] [address]. Llame al [phone] para programar matrha anveed. 2) D?chese diariamente y aplique crema Eucerin sobre la piel seca, excepto en la pierna derecha. 3) Cuidado de la herida en la parte inferior de la pierna derecha: - L?vese las yazmin con agua y jab?n. Retire los ap?sitos anteriores. Limpie la pierna suavemente con soluci?n salina normal y s?quela con martha gasa. Retire suavemente la piel descamada. - L?vese las yazmin nuevamente. - Aplique crema Silvadene en martha gasa adaptativa y exti?ndala sobre la piel abierta afectada. Cubra con martha gasa seca y suj?kathe con cinta adhesiva o venda el?stica. C?mbiela 1 o 2 veces al d?a y seg?n sea necesario si se . Eleve la pierna derecha por encima del nivel del coraz?n para reducir la hinchaz?n, camine con frecuencia fabiola el d?a y d?chese al menos martha vez al d?a. Si se produce sangrado activo, aplique un vendaje ajustado y acuda a pérez m?dico o a urgencias. ? Informe a pérez m?dico de cabecera o regrese a la rell de emergencias si presenta alguno de los siguientes s?ntomas: ? Fiebre superior a 38.2 ?C (100.6 ?F). ? Aumento del dolor. ? Aumento de la hinchaz?n. ? Estr?as perez alrededor de la herida. ? El drenaje tiene mal olor o cambia de color. ? La herida es m?s mone o profunda. ? La herida se ve seca u oscura. ? Sangrado que no se detiene al presionar. Send feedback Side panels History Savedlete antibiotic treatment with Keflex for 5 more days If your lesions recur, obtain referral for dermatology and follow-up with dermatology outpatient You are prediabetic, follow-up with your primary care physician in 1 week for further management Continue your blood pressure medication outpatient. Follow-up with wound care outpatient, follow wound instructions as below Return to the emergency department if your symptoms worsen 1) Follow up at [facility], [address] [place] [address]. Call [phone] for appointment. 2) Shower daily than apply Eucerin cream to dry skin except on the right leg. 3) Wound care to right lower leg: -Wash hands with soap and water. Removed old dressings. Cleanse leg gently with normal saline and pat dry with gauze. Gently removing peeling skin. - Wash hands again. - Apply Silvadene cream into adaptic gauze and layer over affected open skin. Layer with dry gauze pad and secure with tape or noelle wrap. -Change 1-2 times a day and as needed for falling off. Elevate your right lower leg above heart level to help with swelling, ambulate frequently throughout the day and shower at least daily If active bleeding occurs, apply tight dressing and return to MD or ER. ? Notify primary doctor or return to Emergency Room if any of the following: ? Fever above 100.6? F. ? Increased pain ? Increase swelling ? Red streaks around your wound ? Drainage becomes foul smelling or changes color ? The wound is larger or deeper ? The wound looks dried out or dark ? Bleeding that does not stop with holding pressure Assessment and plan discussed with my attending physician Dr. Galan and Dr. Alvarez (PGY-2) Dr. Bob (PGY-1) - Internal medicine resident Status at Discharge Overall status at discharge: patient is progressing back to baseline Time Spent with Patient Time attestation: Total time spent providing and/or coordinating discharge services: Time spent: Greater than 30 minutes Exam Vital Signs Temp Pulse Resp BP Pulse Ox O2 Del Method 98.3 F 90 20 111/71 95 Room Air 09/19/25 11:38 09/19/25 11:38 09/19/25 11:38 09/19/25 11:38 09/19/25 11:38 09/19/25 11:38 Narrative Exam General: No acute distress, well nourished, AAO x3 Eye: PERRL, EOMI, normal conjunctiva, no scleral icterus HENT: Normocephalic, atraumatic, hearing intact to conversation at normal volume, moist oral mucosa Neck: Supple, non-tender, no JVD, no lymphadenopathy Lungs: Non-labored respirations, symmetric chest rise, Clear to auscultate bilaterally, No wheezing, rhonchi, crackles Heart: Peripheral pulses intact bilaterally, Regular Rate and Rhythm. Abdomen: Soft, non-tender, non-distended, no palpable masses Musculoskeletal: Normal range of motion and strength, SEE SKIN Skin: Healing and crusted wounds present along the medial aspect of the right leg. Patchy erythema noted extending from the ankle to just below hip. Mild tenderness to palpation. Superficial skin peeling and multiple superficial erosions observed. No Crepitus, fluctuance or bullae seen. Psychiatric: Cooperative, appropriate mood and affect, Awake and alert, not agitated Neuro: Cranial nerves II-XII grossly intact. Strength 5/5 throughout. Sensations intact to light touch. Discharge Plan Plan Patient Disposition: Home w/HOME HEALTH Patient condition on transfer: Stable Care Plan Goals: Complete el tratamiento antibi?iggy con Keflex fabiola 5 d?as m?s. Si las lesiones reaparecen, solicite martha derivaci?n a dermatolog?a y acuda a pérez consulta externa. Si es prediab?iggy, acuda a pérez m?dico de cabecera en martha semana para continuar con el tratamiento. Contin?e con pérez medicaci?n para la presi?n arterial en la consulta externa. Aseg?rese de acudir a la consulta externa de cuidado de heridas y siga las instrucciones que se indican a continuaci?n. Regrese al servicio de urgencias si harvinder s?ntomas empeoran. 1) Acuda a la [facility], ubicada en [address] [place] [address]. Llame al [phone] para programar martha naveed. 2) D?chese diariamente y aplique crema Eucerin sobre la piel seca, excepto en la pierna derecha. 3) Cuidado de la herida en la parte inferior de la pierna derecha: - L?vese las yazmin con agua y jab?n. Retire los ap?sitos anteriores. Limpie la pierna suavemente con soluci?n salina normal y s?quela con martha gasa. Retire suavemente la piel descamada. - L?vese las yazmin nuevamente. - Aplique crema Silvadene en martha gasa adaptativa y exti?ndala sobre la piel abierta afectada. Cubra con martha gasa seca y suj?kathe con cinta adhesiva o venda el?stica. C?mbiela 1 o 2 veces al d?a y seg?n sea necesario si se . Eleve la pierna derecha por encima del nivel del coraz?n para reducir la hinchaz?n, camine con frecuencia fabiola el d?a y d?chese al menos martha vez al d?a. Si se produce sangrado activo, aplique un vendaje ajustado y acuda a pérez m?dico o a urgencias. ? Informe a pérez m?dico de cabecera o regrese a la rell de emergencias si presenta alguno de los siguientes s?ntomas: ? Fiebre superior a 38.2 ?C (100.6 ?F). ? Aumento del dolor. ? Aumento de la hinchaz?n. ? Estr?as perez alrededor de la herida. ? El drenaje tiene mal olor o cambia de color. ? La herida es m?s mone o profunda. ? La herida se ve seca u oscura. ? Sangrado que no se detiene al presionar. Send feedback Side panels History Savedlete antibiotic treatment with Keflex for 5 more days If your lesions recur, obtain referral for dermatology and follow-up with dermatology outpatient You are prediabetic, follow-up with your primary care physician in 1 week for further management Continue your blood pressure medication outpatient. Follow-up with wound care outpatient, follow wound instructions as below Return to the emergency department if your symptoms worsen 1) Follow up at [facility], [address] [place] [address]. Call [phone] for appointment. 2) Shower daily than apply Eucerin cream to dry skin except on the right leg. 3) Wound care to right lower leg: -Wash hands with soap and water. Removed old dressings. Cleanse leg gently with normal saline and pat dry with gauze. Gently removing peeling skin. - Wash hands again. - Apply Silvadene cream into adaptic gauze and layer over affected open skin. Layer with dry gauze pad and secure with tape or noelle wrap. -Change 1-2 times a day and as needed for falling off. Elevate your right lower leg above heart level to help with swelling, ambulate frequently throughout the day and shower at least daily If active bleeding occurs, apply tight dressing and return to MD or ER. ? Notify primary doctor or return to Emergency Room if any of the following: ? Fever above 100.6? F. ? Increased pain ? Increase swelling ? Red streaks around your wound ? Drainage becomes foul smelling or changes color ? The wound is larger or deeper ? The wound looks dried out or dark ? Bleeding that does not stop with holding pressure Prescriptions/Referrals Prescriptions/Med Rec: New cephalexin 500 mg capsule 500 mg PO QID 5 Days Qty: 20 0RF silver sulfadiazine [Silvadene] 1 % cream 1 applic topical BID Qty: 50 0RF Rx Instructions: apply a 1.5 mm thickness Continued losartan-hydrochlorothiazide 100-25 mg tablet 1 tab PO QDAY Patient Comments: TAKE 1 TABLET BY MOUTH EVERY DAY Discontinued doxycycline hyclate 100 mg capsule 100 mg PO Q12H Patient Comments: TAKE 1 CAPSULE BY MOUTH TWICE A DAY ibuprofen 800 mg tablet 800 mg PO TID PRN (Reason: pain) Qty: 30 0RF Referrals: Jeanmarie Stinson MD [Primary Care Provider] Patient/Caregiver Discharge Instructions Education Materials: Nutrition for Wound Healing, Discharge Instructions for Cellulitis, Changing Dressing Dc, Wound Dressing Change Steps, ED Cellulitis Print Language: Faroese Stand Alone Forms: Alise Award Info., Patient Portal Info Letter Discharge Order Discharge Orders: Discharge (Routine); Ordered 09/19/25 Ordered By: Vlad Alvarez Quality Discharge Quality Measures VTE prophylaxis Attestestation Attestation I have discussed and was present for the essential components of the discharge history, physical examination, diagnosis, and discharge treatment plan with the resident. I agree with the patient's discharge care as documented by the resident and amended herein by me. Kirk Galan DO. The patient understood all discharge instructions, all questions were answered satisfactorily. The patient was instructed to return to the Emergency Department is symptoms worsened or persisted. Patient's right lower extremity significantly improved, patient will need to follow-up with his primary care physician within 3 to 5 days of discharge, was going to send the patient with home health for wound care however the wounds are pretty crusted over and dry I do not think he will need it at this time however stated above, will need close follow-up. Will send with a few more days of Keflex, see resident note above for additional details. Although this document has been carefully reviewed, there may still be some phonetic and other typographical errors. These errors are purely grammatical due to imperfections in the software program and should not be construed in any way to compromise the substance of the patient's medical care during this visit.
--- NOTE | 2025-09-20 08:30 | PC.CC ---
spoke to Dr. Galan regarding hh order, he stated he changed his mind yesterday. Pt does not need HH, therefore he did not order it.
== END 2025-09-19 14:45 | disposition home health service (06) | DRG 383 ==
LOC: SERX 17:29 → SERHOLD 17:31 → S3NX 19:46
PROVIDERS: Admitting Provider Student in an Organized Health Care Education/Training Program; Emergency Provider Emergency Medicine; PCP Family Medicine; Visit Provider Student in an Organized Health Care Education/Training Program
DX: L03.115 Cellulitis of right lower limb (principal); I10 Essential (primary) hypertension; E83.42 Hypomagnesemia; D64.9 Anemia, unspecified
CPT/HCPCS: 36415; 71045; 73701; 80053; 80061; 80202; 81001; 83036; 83605; 83690; 83735; 83880; 84100; 84145; 84484; 85025; 85610; 85652; 85730; 86140; 87040; 87086; 93005; 93971; 96361; 96365; 96366; 96372; 97162; 99284; A4649; J0689; J1644; J2543; J3373; J3475; J7030; J7120; Q9967; A9270